=== PATIENT | male | born 1965 | race Caucasian/White ===

== ENCOUNTER 2022-08-27 07:23 | Outpatient (CLI) | payer BC, SELFPAY | END 2022-08-27 07:24 | disposition home or self-care (01) | PROVIDERS: Visit Provider Surgery | DX: Z12.11 Encounter for screening for malignant neoplasm of colon (principal); K63.5 Polyp of colon; K62.1 Rectal polyp; K57.30 Diverticulosis of large intestine without perforation or abscess without bleeding; N40.2 Nodular prostate without lower urinary tract symptoms; Z83.71 Family history of colonic polyps; Z86.010 Personal history of colon polyps | CPT/HCPCS: 45385; 88305; 99153; J1200; J2250; J3010 ==

== ENCOUNTER 2023-10-14 08:02 | Outpatient (CLI) | payer BC, SELFPAY | END 2023-10-14 08:03 | disposition home or self-care (01) | LOC: NFLDREF 10-29 11:47 | PROVIDERS: PCP Family Medicine; Referring Provider Family Medicine; Visit Provider Family Medicine | DX: Z13.1 Encounter for screening for diabetes mellitus (principal); Z13.6 Encounter for screening for cardiovascular disorders | CPT/HCPCS: 80061; 82947 ==

== ENCOUNTER 2025-01-01 09:08 | Outpatient (CLI) | payer BC, SELFPAY | END 2025-01-01 09:09 | disposition home or self-care (01) | PROVIDERS: PCP Family Medicine; Visit Provider Family Medicine | DX: Z00.01 Encounter for general adult medical examination with abnormal findings (principal); E78.5 Hyperlipidemia, unspecified; R03.0 Elevated blood-pressure reading, without diagnosis of hypertension | CPT/HCPCS: 80053; 80061 ==

== ENCOUNTER 2025-06-15 06:33 | Outpatient (CLI) | payer BC, SELFPAY ==
--- NOTE | 2025-06-15 08:00 | P.ANES_ITS ---
Anesthesia Charges Start Date/Time Anesthesia Start Date: 06/15/25 Anesthesia Start Time: 07:17 Stop Date/Time Anesthesia Stop Date: 06/15/25 Anesthesia Stop Time: 08:00 Coding CPT Codes CPT Codes: AURA LWR INTST NDSC NOS - [id number] ([id number]) P2 - PATIENT W/MILD SYST DISEASE, QK - MANAGER PAYER 2-4 CNCRNT ANES PROC, QX - LICENSED REACTOR OPERATOR SVC W/ MD MED DIRECTION
--- NOTE | 2025-06-15 08:00 | W.ANESCHARGE ---
Anesthesia Charges Start Date/Time Anesthesia Start Date: 06/15/25 Anesthesia Start Time: 07:17 Stop Date/Time Anesthesia Stop Date: 06/15/25 Anesthesia Stop Time: 08:00 Coding CPT Codes CPT Codes: AURA LWR INTST NDSC NOS - [id number] ([id number]) P2 - PATIENT W/MILD SYST DISEASE, QK - COUTURE ALTERATIONS DRESSMAKER 2-4 CNCRNT ANES PROC, QX - DIRECTOR PATIENT ACCOUNTING SVC W/ MD MED DIRECTION
--- NOTE | 2025-06-15 08:48 | P.ANES_ITS ---
Anesthesia Charges Start Date/Time Anesthesia Start Date: 06/15/25 Anesthesia Start Time: 07:17 Stop Date/Time Anesthesia Stop Date: 06/15/25 Anesthesia Stop Time: 08:00 Coding CPT Codes CPT Codes: AURA LWR INTST NDSC NOS - [id number] ([id number]) QK - REGASIFICATION PLANT OPERATOR 2-4 CNCRNT AURA PROC, QX - SPONGE PACKER SVC W/ MD MED DIRECTION, P2 - PATIENT W/MILD SYST DISEASE
--- NOTE | 2025-06-15 08:48 | W.ANESCHARGE ---
Anesthesia Charges Start Date/Time Anesthesia Start Date: 06/15/25 Anesthesia Start Time: 07:17 Stop Date/Time Anesthesia Stop Date: 06/15/25 Anesthesia Stop Time: 08:00 Coding CPT Codes CPT Codes: AURA LWR INTST NDSC NOS - [id number] ([id number]) QK - COMBAT SYSTEMS OPERATOR 2-4 CNCRNT ARUA PROC, QX - PRINCIPAL LAW CLERK SVC W/ MD MED DIRECTION, P2 - PATIENT W/MILD SYST DISEASE
== END 2025-06-15 06:34 | disposition home or self-care (01) ==
LOC: OP CLINIC 06:33
PROVIDERS: PCP Family Medicine; Visit Provider Surgery
DX: Z12.11 Encounter for screening for malignant neoplasm of colon (principal); Z86.0100 Personal history of colon polyps, unspecified; K57.30 Diverticulosis of large intestine without perforation or abscess without bleeding; D12.2 Benign neoplasm of ascending colon; D12.3 Benign neoplasm of transverse colon; D12.5 Benign neoplasm of sigmoid colon
CPT/HCPCS: 00811; 00812; 45385; 88305; J2704